=== PATIENT | male | born 1960 | race Caucasian/White ===

== ENCOUNTER → 2017-10-04 14:43 | Outpatient (RCR) | payer SELFPAY ==
[2017-10-04 18:20] LABS: Basophils % 0.6 % (0.1-2.0); Eosinophils # 0.1 K/mm3 (0.0-0.4); Eosinophils % 0.9 % (0.1-12.0); Hematocrit 49.3 % (42.0-52.0); Hemoglobin 15.6 g/dL (14.1-18.0); Lymphocytes # 1.2 K/mm3 (0.7-4.5); Mean Corpuscular HGB Conc 31.7 g/dL (31.8-35.4); Mean Corpuscular Hemoglobin 31.5 pg (27.0-31.2); Mean Corpuscular Volume 99.2 fl (80-94); Mean Platelet Volume 8.6 fl (7.4-10.4); Monocytes # 0.4 K/mm3 (0.1-1.0); Monocytes % 6.5 % (1.7-9.3); Neutrophils # 4.9 K/mm3 (1.8-7.8); Platelet Count 179 K/mm3 (142-424); Red Blood Count 4.97 M/mm3 (4.60-6.20); White Blood Count 6.6 K/mm3 (4.8-10.8)
[2017-10-04 19:06] LABS: Alanine Aminotransferase 84 U/L (12-78); Albumin Level 3.7 gm/dL (3.4-5.0); Alkaline Phosphatase 94 U/L (46-116); Anion Gap 13.7 mEq/L (5-15); Aspartate Amino Transferase 214 U/L (15-37); Bilirubin,Total 0.7 mg/dL (0.2-1.0); Blood Urea Nitrogen 6 mg/dL (7-18); Calcium 9.3 mg/dL (8.5-10.1); Carbon Dioxide 33 mmol/L (21.0-32.0); Chloride 93 mmol/L (98-107); Chol/HDL Ratio 1.5 (1-3.5); Cholesterol 156 mg/dL (140-200); Creatinine,Serum 0.58 mg/dL (0.70-1.30); Estimated Glomerular Filt Rate 145 ml/min (>60); Free T4 (Free Thyroxine) 0.98 ng/dl (0.76-1.46); GFR (African American) 176 ML/MIN (>60); Globulin 3.7 gm/dl (1.3-3.2); Glucose 109 mg/dL (74-106); HDL Cholesterol 103 mg/dL (27-67); LDL Cholesterol 43 mg/dL (0-130); Potassium 4.7 mmoL/L (3.5-5.1); Sodium 135 mmol/L (136-145); Thyroid Stimulating Hormone 1.46 uIU/ml (0.358-3.740); Total Protein,Serum 7.4 gm/dL (6.4-8.2); Triglycerides 51 mg/dL (30-200); VLDL Cholesterol 10 mg/dL (0-40)
[2017-10-04 20:56] LABS: Erythrocyte Sedimentation Rate 12 mm/hr (0-20)
[2017-10-08 06:16] LABS: Hep A Ab, IgM Negative (Negative); Hepatitis B Core Antibody IgM Negative (Negative); Hepatitis B Surface Antigen Negative (Negative)
[2017-10-08 13:38] LABS: Hepatitis C Antibody <0.1 s/co ratio (0.0-0.9)
== END ==
LOC: LAB 14:43
PROVIDERS: Physician Assistant; Visit Provider Emergency Medicine
DX: R09.89 Other specified symptoms and signs involving the circulatory and respiratory systems (principal)
CPT/HCPCS: 80053; 80061; 80074; 84439; 84443; 85025; 85651

== ENCOUNTER → 2017-10-15 09:22 | Outpatient (CLI) | payer SELFPAY ==
--- NOTE | 2017-10-15 09:26 | XR_ITS ---
XR hip LT 2-3V w/pelvis HISTORY: ITS.REASON: Hip Pain ORDERING PHYSICIAN: Rogelio Barron MD PATIENT AGE: 56 years COMPARISON: None FINDINGS: No fracture or dislocation is evident. No significant degenerative change. No lytic or blastic change. Unremarkable soft tissues. There are small subchondral cysts in each femoral head. There is prominent arteriosclerotic calcification of the lower abdominal aorta and proximal iliac arteries. IMPRESSION: Pelvis and bilateral hips negative for fracture and there is no significant degenerative change in either hip.
== END ==
PROVIDERS: PCP Emergency Medicine; Visit Provider Emergency Medicine
DX: M25.552 Pain in left hip (principal)
CPT/HCPCS: 73502

== ENCOUNTER → 2017-12-31 07:48 | Outpatient (CLI) | payer MEDICARE, SELFPAY ==
--- NOTE | 2017-12-31 07:50 | US_ITS ---
US abd. aorta screening HISTORY: ITS.REASON: Abdl pain, h/o aortic blockage ORDERING PHYSICIAN: SOHAM Avilez PATIENT AGE: 57 years Comparison: None FINDINGS: The study is very limited due to overlying bowel gas and due to overlying scarring. The aorta is patent at the level of the xiphoid measuring 2.5 x 1.9 cm. The aorta becomes dilated to 7 m below the xiphoid measuring 3.5 x 2.7 cm. At the level of the umbilicus the aorta measures 4 cm AP. Cannot confirm flow through the aorta on the sagittal images. Recommend CT angiogram of the aorta for more thorough evaluation. Proximal common iliacs are patent and nondilated. IMPRESSION: Dilated mid abdominal aorta at 4 cm. Cannot confirm flow within the aorta at this area as the images are very limited due to limited acoustical window. Suggest CT angiogram of the aorta for further evaluation
--- NOTE | 2017-12-31 07:50 | XR_ITS ---
XR chest 2V HISTORY: Smoker, COPD ITS.REASON: COPD ORDERING PHYSICIAN: SOHAM Avilez PATIENT AGE: 57 years COMPARISON: None FINDINGS: Unremarkable cardiovascular structures. There is hyperinflation with attenuation of the peripheral pulmonary vessels consistent with COPD no lobar consolidation or collapse. Lungs are clear. No acute bony anomalies. There is an old fracture of the left seventh rib IMPRESSION: COPD, no acute finding
== END ==
PROVIDERS: Family Provider Internal Medicine Adolescent Medicine; PCP Emergency Medicine; Visit Provider Physician Assistant
DX: Z98.890 Other specified postprocedural states; J44.9 Chronic obstructive pulmonary disease, unspecified
CPT/HCPCS: 71046; 76705

== ENCOUNTER → 2018-01-13 06:50 | Outpatient (CLI) | payer MEDICARE, SELFPAY ==
--- NOTE | 2018-01-13 06:51 | NM_ITS ---
History and Indications: Hypertension, tobacco use, shortness of breath Procedure: Patient received a 0.4 mg of Lexiscan, resting heart rate was 86 bpm resting blood pressure 196/110, with Lexiscan maximum heart rate achieved was 120 beats prominent which is less than 85% of the maximum predicted heart rate and a blood pressure was 149/88. With Lexiscan patient, shortness of breath. Electrocardiogram: Resting electrocardiogram showed sinus rhythm, with Lexiscan there is less than 1.[address] segment depression noted from the baseline EKG. The EKG portion of the Lexiscan Myoview is nondiagnostic. Cardiac stress and resting SPECT images: Cardiac stress and resting SPECT images were obtained using technetium 99 Myoview 32.3 mCi at stress and 10.6 mCi at rest, gated SPECT further analysis of segmental wall motion and admission of the ejection fraction also done. Cardiac stress and the suspect images show uniform myocardial activity without segmental perfusion abnormality, either derived ejection fraction is 62% with no regional wall motion abnormality, right ventricle is normal size and contractility. Conclusion: 1. The EKG portion of the Lexiscan Myoview is nondiagnostic. 2. No obvious scintigraphic evidence of reversible ischemia seen, computer derived ejection fraction is 62% with no regional wall motion abnormality, right ventricle is normal size and contractility. 3. Normal Lexiscan Myoview study.
--- NOTE | 2018-01-13 06:51 | CT_ITS ---
CT angio abdomen CLINICAL INDICATION: Abdominal pain, history of abdominal aortic aneurysm. Follow-up abnormal ultrasound of 12/31/2017. ITS.REASON: x ORDERING PHYSICIAN: Stepan Menendez MD PATIENT AGE: 57 years COMPARISON: None TECHNIQUE: Axial images obtained with sagittal and coronal reformats. All CT scans at the facility use one or more dose reduction, viz: automated exposure control, ma/kV adjustment per patient size (including targeted exams where dose is matched to indication, i.e. head), or iterative reconstruction technique. PROCEDURE: Oral Contrast: None IV Contrast: 100 mL's of Isovue-370 followed x 40 mL saline bolus.. FINDINGS: There are no previous exams available for comparison. CT angiogram: There has been a prior aortobifem graft placed. The graft begins approximately 2 cm below the level of the superior mesenteric artery and 1.3 cm below the level of the renal arteries. The graft is widely patent. There is mild dilatation of the proximal aspect of the graft at approximately 2.6 cm. There original diameter of the graft however is not known as there are no old exams for comparison. There is no evidence of retroperitoneal hemorrhage. The superior mesenteric artery and celiac arteries are widely patent. No evidence of renal artery stenosis. Small amount calcific plaque is present at the ostium of both renal arteries. There is severe stenosis of the [place] aorta approximately 60%. The iliac limbs of the graft are widely patent. There is suspected occlusion of the [place] iliac arteries proximally. Nonangiographic findings: Lung bases are clear. The liver, spleen, adrenal glands and pancreas and gallbladder have an unremarkable appearance. There is some mild cortical thinning of the kidneys. No evidence for intracranial hemorrhage or retroperitoneal mass. There is mild thickening of the urinary bladder nonspecific. There is grade 2 spondylolytic spondylolisthesis of L5 on S1. IMPRESSION: 1. Patent aortobifem graft. There is mild dilatation of the proximal aspect of the graft a partial clinical significance. No evidence of retrograde no hemorrhage or graft leak. 2. Other incidental nonacute findings as described above
--- NOTE | 2018-01-13 06:51 | CA_ITS ---
PROCEDURE: 2-D M-mode and color Doppler study INDICATIONS FOR THE TEST: Chest pain COPDx Heart Murmur Tobacco Smoking Palpitations Fatiguex Syncope Edema Hypertension Diabetes Mellitus Rheumatic Fever SOBxDOE Obesity Hyperlipidemia Family History HD Additional History AAA PATIENT INFORMATION HEIGHT: 5'7'' WEIGHT:114 GENDER: Male B/P: 204/127 2-D/M-MODE INTERPRETATION: 2-D MEASUREMENTS OBSERVED VALUES IN CMS Right Ventricular Dimension (RVDd) Interventricular Septum (Thickness)(IVsd) 0.9 Left Ventricular Internal Dimensions(LVIDd) 3.4 Left Ventricular Posterior Wall (Thickness)(LVPWd) 0.9 Aortic Root 2.9 Aortic Cusp Separation Left Atrial Dimensions (LAD) 2D 1. Left atrium is mildly enlarged, left ventricle is normal size, mild concentric left ventricular hypertrophy, visually estimated ejection fraction 55-60% with no regional wall motion abnormality. 2. The right atrium and right ventricle, a normal size and contractility. 3. The aortic valve is minimally thickened and fibrosed. 4. There is mild systolic anterior motion of the mitral valve leaflets seen, there is no mitral stenosis. 5. The tricuspid valve is grossly normal. 6. The pulmonic valve is poorly visualized. 7. No significant pericardial effusion noted. DOPPLER INTERROGATION: Doppler interrogation of the aortic, mitral and tricuspid valvular presence of mild mitral and tricuspid regurgitation, tricuspid regurgitation jet velocity is insufficient for calculation of the right ventricular systolic pressure, grade 1 diastolic dysfunction seen without tissue Doppler evidence of raised left atrial pressure. CONCLUSION: 1. The left atrium, normal left ventricular size, mild concentric left ventricular hypertrophy, visually estimated ejection fraction 55-60% with no obvious regional wall motion abnormality, grade 1 diastolic dysfunction seen without tissue Doppler evidence of raised left atrial pressure. 2. Mild systolic atrium motion of the mitral valve leaflets seen, there is no dynamic or fixed obstruction seen in the left ventricle outflow tract. 3. Mild mitral and tricuspid regurgitation 4. No significant pericardial effusion noted.
[2018-01-13 10:33] LABS: Blood Urea Nitrogen 3 mg/dL (7-18); Creatinine,Serum 0.67 mg/dL (0.70-1.30); Estimated Glomerular Filt Rate 123 ml/min (>60); GFR (African American) 148 ML/MIN (>60)
== END ==
PROVIDERS: Family Provider Internal Medicine Adolescent Medicine; PCP Emergency Medicine; Visit Provider Internal Medicine
DX: R06.02 Shortness of breath (principal); I71.4 Abdominal aortic aneurysm, without rupture; R53.83 Other fatigue; Z98.890 Other specified postprocedural states; R10.9 Unspecified abdominal pain; R09.89 Other specified symptoms and signs involving the circulatory and respiratory systems
CPT/HCPCS: 74175; 78452; 82565; 84520; 93017; 93306; A9502; J2785; Q9967

== ENCOUNTER 2018-01-19 12:50 | Observation (INO) ==
--- NOTE | 2018-01-19 13:27 | Emergency Department Note ---
ED Disposition Clinical Impression: Hyponatremia, COPD (chronic obstructive pulmonary disease), Bronchitis Disposition: Still a Patient Condition on Discharge: Good Referrals: Rogelio Barron MD [Primary Care Provider] - - Critical Care Critical Care Time: No Attestation: On 01/19/18, the high probability of a clinically significant, sudden or life threatening deterioration of the following system(s) required my full and direct attention, intervention and personal management. The time I documented below is in addition to time spent performing reported procedures but includes the following listed in this critical care notation. Medical Decision Making - Medical Records MR Comment: 234pm some labs still pending, pt family updated. [address] Carpenter he accepts for Beatrice Lambert Inquiry Pt receiving controlled substance: No Vital Signs: 01/19/18 12:58 01/19/18 13:36 Temperature 98.7 F Temperature Source Oral Pulse Rate 99 H Pulse Rate [Left Brachial] 65 Respiratory Rate 20 Blood Pressure [Left Arm] 103/70 Blood Pressure Mean [Left Arm] 81 Blood Pressure Source [Left Arm] Automatic Cuff Blood Pressure Position [Left Arm] Sitting 02 Sat by Pulse Oximetry 85 L Oxygen Delivery Method Room Air - Lab Data Lab Results 01/19/18 14:10: Influenza Type A Ag Negative, Influenza Type B Ag Negative 01/19/18 14:15: WBC 6.5, RBC 4.97, Hgb 16.0, Hct 47.8, MCV 96.2 H, MCH 32.3 H, MCHC 33.5, RDW 13.2, Plt Count 159, MPV 8.1, Neut % (Auto) 82.1 H, Lymph % (Auto) 10.8, [place] % (Auto) 5.8, Eos % (Auto) 0.9, Baso % (Auto) 0.4, Neut # (Auto) 5.3, Lymph # (Auto) 0.7, [place] # (Auto) 0.4, Eos # (Auto) 0.1, Baso # (Auto) 0.0 01/19/18 14:15: PT 9.8, INR 0.95, APTT 01/19/18 14:15: Sodium 127 L, Potassium 3.7, Chloride 89 L, Carbon Dioxide 26, Anion Gap 15.7 H, BUN 8, Creatinine 0.74, Estimated Creat Clear 85, Estimated GFR 109, Est GFR ( Amer) 132, Glucose 148 H, Calcium 8.8, Total Bilirubin 0.5, AST 49 H, ALT 29, Alkaline Phosphatase 71, Troponin I < 0.02, Total Protein 7.7, Albumin 3.5, Globulin 4.2 H, Albumin/Globulin Ratio 0.8 L, Lipase 156 Result diagrams: 01/19/18 14:15 01/19/18 14:15 Orders (Tests/Meds): ED MEDICATIONS Generic Name Dose Route Start Last Admin Trade Name Freq PRN Reason Stop Dose Admin Benzonatate 100 mg 01/19/18 14:45 Tessalon Perles 100mg Capsule PO 02/18/18 14:44 ONCE DELMIS Discontinued Medications Generic Name Dose Route Start Last Admin Trade Name Freq PRN Reason Stop Dose Admin Albuterol/Ipratropium 3 ml 01/19/18 13:24 01/19/18 13:35 Duoneb 3ml [facility] 01/19/18 13:25 3 ml ONCE ONE Administration Albuterol/Ipratropium 3 ml 01/19/18 14:33 Duoneb 3ml [facility] 01/19/18 14:34 ONCE ONE Methylprednisolone Sodium Succinate 125 mg 01/19/18 14:33 Solu-Medrol 125mg/2ml Vial IV 01/19/18 14:34 ONCE ONE - ECG Data Tracing #1 ER EKG read by myself shows sinus tachycardia rhythm rate of 108, normal axis, no QT prolongation, nonspecific EKG General Adult HPI - General Chief complaint: Upper Respiratory Infection Stated complaint: body aches soa Time Seen by Provider: 01/19/18 13:25 Mode of Arrival: Ambulatory Limitations: No Limitations Description of Symptoms (Recalled from ER Triage Doc. by RN): cough with clear sputum x2 days, body aches, chills reported, denies fever - History of Present Illness HPI narrative: Recent complains of cough dry and hacking and sometimes with some green phlegm and shortness of breath malaise and fatigue and whole body ache and chest congestion. States she was recently seen by Dr. Menendez with test done. He is CT angiogram on 920 that showed patent aortobifem graft mild dilatation of the proximal aspect of the graft a partial clinical significance no evidence of retrograde no hemorrhage no graft leak he had a Myoview report which the EKG portion was nondiagnostic headache and had a normal Lexiscan Myoview study ejection fraction 62%. - Related Data Home Medications Medication Instructions Recorded Confirmed albuterol sulfate HFA 90 2 puff INHALATION Q6H PRN 10/04/17 mcg/actuation aerosol inhaler Previous Rx's Medication Instructions Recorded bisoprolol fumarate 5 mg tablet 5 mg PO QDAY #30 tab 01/13/18 Allergies Allergy/AdvReac Type Severity Reaction Status Date / Time PCN (PENICILLIN) Allergy Unknown Uncoded 01/13/18 13:26 [facility] History I have reviewed the patient's past medical history: Yes Medical History: Reports:: Chronic Obstructive Pulmonary Disease (COPD), Coronary Artery Disease, Lung Disease Other Surgeries: Yes: Hernia Repair Amputation: No Fractures: Yes Comment: neck surgery,aortic valve replaced - Social History Educational Level: Completed GED/General Educational Development Smoking Status: Current every day smoker Tobacco Type: cigarettes # Packs/Day (cigarettes): 1 Alcohol Intake: never Alcohol Intake Frequency:: a few times a week Substance Use Type: marijuana - Psychiatric History Expresses thoughts of harming self/others: None Suicide Plan Description: No Plan Family Hx:: Cancer ROS Obtained: Yes All systems reviewed & no additional complaints Physical Exam General Appearance: Nontoxic coughing Head: Normocephalic, without obvious abnormality, atraumatic. Eyes: conjunctiva/corneas clear ENT: Mucous membranes moist. Neck: No jugular venous distention. Cardiac: regular rate and rhythm Lungs: Rhonchi to auscultation bilaterally Abdomen: Nontender, Nondistended, positive bowel sounds, no rebound, no pulsatile mass : No CVA tenderness Extremities: no edema Musculoskeletal: No chest wall tenderness Skin: No rashes or lesions to exposed skin. Neurologic: Alert. No gross focal deficits Psychiatric: Normal affect - General General appearance: alert - Respiratory Respiratory exam: Absent: accessory muscle use - Cardiovascular Cardiovascular exam: Present: regular rate - Neurological Exam Neurological exam: Present: alert
[2018-01-19 14:27] LABS: Basophils % 0.4 % (0.1-2.0); Eosinophils # 0.1 K/mm3 (0.0-0.4); Eosinophils % 0.9 % (0.1-12.0); Hematocrit 47.8 % (42.0-52.0); Lymphocytes # 0.7 K/mm3 (0.7-4.5); Lymphocytes % 10.8 K/mm3 (10-50); Mean Corpuscular HGB Conc 33.5 g/dL (31.8-35.4); Mean Corpuscular Hemoglobin 32.3 pg (27.0-31.2); Mean Corpuscular Volume 96.2 fl (80-94); Mean Platelet Volume 8.1 fl (7.4-10.4); Monocytes # 0.4 K/mm3 (0.1-1.0); Monocytes % 5.8 % (1.7-9.3); Neutrophils # 5.3 K/mm3 (1.8-7.8); Neutrophils % 82.1 % (37.0-80.0); Platelet Count 159 K/mm3 (142-424); Red Blood Count 4.97 M/mm3 (4.60-6.20); Red Cell Distribution Width 13.2 % (11.5-17.5); White Blood Count 6.5 K/mm3 (4.8-10.8)
[2018-01-19 14:48] LABS: Alanine Aminotransferase 29 U/L (12-78); Albumin Level 3.5 gm/dL (3.4-5.0); Albumin/Globulin Ratio 0.8 (1.1-1.8); Alkaline Phosphatase 71 U/L (46-116); Anion Gap 15.7 mEq/L (5-15); Aspartate Amino Transferase 49 U/L (15-37); Bilirubin,Total 0.5 mg/dL (0.2-1.0); Blood Urea Nitrogen 8 mg/dL (7-18); Calcium 8.8 mg/dL (8.5-10.1); Carbon Dioxide 26 mmol/L (21.0-32.0); Chloride 89 mmol/L (98-107); Globulin 4.2 gm/dl (1.3-3.2); Glucose 148 mg/dL (74-106); Lipase 156 u/L (73-393); Potassium 3.7 mmoL/L (3.5-5.1); Sodium 127 mmol/L (136-145); Total Protein,Serum 7.7 gm/dL (6.4-8.2)
[2018-01-19 15:01] LABS: INR 0.95 (0.9-1.1); Prothrombin Time 9.8 seconds (9.4-11.8)
[2018-01-20 05:31] LABS: Basophils % 0.2 % (0.1-2.0); Eosinophils % 0.2 % (0.1-12.0); Hematocrit 40.6 % (42.0-52.0); Lymphocytes % 18.8 K/mm3 (10-50); Mean Corpuscular HGB Conc 34.2 g/dL (31.8-35.4); Mean Corpuscular Hemoglobin 32.8 pg (27.0-31.2); Mean Corpuscular Volume 96.1 fl (80-94); Mean Platelet Volume 8.3 fl (7.4-10.4); Monocytes # 0.5 K/mm3 (0.1-1.0); Monocytes % 8.9 % (1.7-9.3); Neutrophils # 3.8 K/mm3 (1.8-7.8); Neutrophils % 71.9 % (37.0-80.0); Platelet Count 144 K/mm3 (142-424); Red Blood Count 4.23 M/mm3 (4.60-6.20); Red Cell Distribution Width 13.3 % (11.5-17.5); White Blood Count 5.3 K/mm3 (4.8-10.8)
[2018-01-20 05:42] LABS: Albumin Level 2.8 gm/dL (3.4-5.0); Albumin/Globulin Ratio 0.8 (1.1-1.8); Bilirubin,Total 0.5 mg/dL (0.2-1.0); Calcium 8.2 mg/dL (8.5-10.1); Globulin 3.6 gm/dl (1.3-3.2); Total Protein,Serum 6.4 gm/dL (6.4-8.2)
[2018-01-20 05:53] LABS: Hemoglobin 13.9 g/dL (14.1-18.0)
--- NOTE | 2018-01-20 08:07 | Pharmacy Consult Notes ---
[facility] Pharmacy VTE Monitoring - Patient Demographics Admission date: 01/20/18 Report Date: 01/20/18 Time: 08:07 Allergies/Adverse Reactions: Patient Allergies Penicillins Allergy (Verified 01/19/18 15:39) Unknown allergy reaction Height: 1.7 m Weight: 49.215 kg Patient Problems: Current Active Problems Hyponatremia (Acute) Bronchitis (Acute) COPD (chronic obstructive pulmonary disease) (Chronic) - VTE Risk Labs: VTE Related Lab Results Hgb 13.9 g/dL (14.1-18.0) L D 01/20/18 04:17 Hct 40.6 % (42.0-52.0) L 01/20/18 04:17 Plt Count 144 K/mm3 (142-424) 01/20/18 04:17 PT 9.8 seconds (9.4-11.8) 01/19/18 14:15 INR 0.95 (0.9-1.1) 01/19/18 14:15 APTT seconds (23.6-34.0) 01/19/18 14:15 BUN 6 mg/dL (7-18) L 01/20/18 04:17 Creatinine 0.58 mg/dL (0.70-1.30) L D 01/20/18 04:17 Estimated Creat Clear 99 mL/min (0-300) 01/20/18 04:17 Was VTE Risk Assessment Performed: Yes VTE Score: 2 VTE Risk Level: Low Risk Clinical Trial Participant: No - Prophylaxis Types of VTE Prophylaxis: IPCS Thigh High Location of Applied Device: Bilateral Lower Extremeties
[2018-01-20 09:56] LABS: Anion Gap 11.3 mEq/L (5-15); Potassium 3.3 mmoL/L (3.5-5.1)
--- NOTE | 2018-01-20 16:41 | History & Physical Report ---
*Admission Date: 01/20/18 *Chief complaint: sob *History of present illness: 57 yr old male presents to ed with complains of cough dry and hacking and sometimes with some green phlegm and shortness of breath malaise and fatigue and whole body ache and chest congestion. States he has been recently seen by Dr. Menendez with test done. Pt admitted with hyponatermia and ct chest ordered.pt is needing 02 due to sob. [facility] History I have reviewed the patient's past medical history: Yes Medical History: Reports:: Chronic Obstructive Pulmonary Disease (COPD), Coronary Artery Disease, Lung Disease Denies:: Cancer, Diabetes Mellitus Type 1, Diabetes Mellitus Type 2, MRSA Other Surgeries: Yes: Hernia Repair Amputation: No Fractures: Yes - *Social History Educational Level: Completed GED/General Educational Development Smoking Status: Current every day smoker Tobacco Type: cigarettes # Packs/Day (cigarettes): 1 Alcohol Intake: current Alcohol Intake Frequency:: holidays/special occasions only Substance Use Type: marijuana Occupational Status: disabled Housing: apartment Household Members: family - Psychiatric History Expresses thoughts of harming self/others: None Suicide Plan Description: No Plan *Family Hx:: Cancer Review of Systems - Review of Systems Review of systems:: pertinent systems reviewed and negative unless documented below - Constitutional Reports malaise, Denies fever(s) - Eyes Denies change in vision - ENT Denies change in voice - *Cardiovascular Reports shortness of breath, Denies chest pain with activity - *Respiratory Reports change in phlegm color, Reports cough, Reports shortness of breath, Reports shortness of breath with activity - *Gastrointestinal Denies loose stools - *Genitourinary Denies painful urination - *Musculoskeletal Denies decreased muscle mass - Integumentary/Breasts Denies change in hair - *Neurologic Reports weakness - Psychiatric Denies anxiety - Endocrine Denies flushing - Hematologic/Lymphatic Denies enlarged lymph nodes - Allergic/Immunologic Denies lip swelling Meds Home Medications Medication Instructions Recorded Confirmed Type albuterol sulfate HFA 90 2 puff INHALATION Q6H PRN 10/04/17 01/19/18 History mcg/actuation aerosol inhaler Bisoprolol Fumarate [Bisoprolol 5 mg PO DAILY 01/19/18 01/20/18 History 5mg Tablet] Allergies Allergy/AdvReac Type Severity Reaction Status Date / Time Penicillins Allergy Unknown Verified 01/19/18 15:39 allergy reaction Exam Vital signs and Labs for Last 24 Hours: Temp Pulse Resp BP Pulse Ox 98.4 F 70 18 112/64 96 01/20/18 16:00 01/20/18 16:00 01/20/18 16:00 01/20/18 16:00 01/20/18 16:00 Laboratory Results - last 24 hr 01/19/18 18:37: Troponin I < 0.02 01/20/18 00:30: Troponin I < 0.02 01/20/18 04:17: WBC 5.3, RBC 4.23 L, Hgb 13.9 L D, Hct 40.6 L, MCV 96.1 H, MCH 32.8 H, MCHC 34.2, RDW 13.3, Plt Count 144, MPV 8.3, Neut % (Auto) 71.9, Lymph % (Auto) 18.8, [place] % (Auto) 8.9, Eos % (Auto) 0.2, Baso % (Auto) 0.2, Neut # (Auto) 3.8, Lymph # (Auto) 1.0, [place] # (Auto) 0.5, Eos # (Auto) 0.0, Baso # (Auto) 0.0 01/20/18 04:17: Sodium 127 L, Potassium 3.0 L, Chloride 91 L, Carbon Dioxide 27, Anion Gap 12.0, BUN 6 L, Creatinine 0.58 L D, Estimated Creat Clear 99, Estimated GFR 145, Est GFR ( Amer) 175 D, Glucose 95 D, Calcium 8.2 L, Total Bilirubin 0.5, AST 33 D, ALT 21 D, Alkaline Phosphatase 52, Total Protein 6.4, Albumin 2.8 L D, Globulin 3.6 H, Albumin/Globulin Ratio 0.8 L 01/20/18 09:42: Sodium 127 L, Potassium 3.3 L, Chloride 93 L, Carbon Dioxide 26, Anion Gap 11.3, BUN 5 L, Creatinine 0.52 L, Estimated Creat Clear 110, Estimated GFR 164, Est GFR ( Amer) 199, Glucose 105, Calcium 8.0 L I & O for Last 24 hours: Intake & Output 01/18/18 01/19/18 01/20/18 01/21/18 11:59 11:59 11:59 11:59 Intake Total 1480 / 1480 480 / 480 Output Total 900 / 900 250 / 250 Balance 580 / 580 230 / 230 Weight 108 lb 8 oz Microbiology Reports for the Last 24 Hours: Microbiology 01/20/18 09:35 Sputum - Expectorated Sputum Gram Stain - Final - *Routine HEENT Exam Head: Present: normocephalic Eye: Present: EOMI, PERRL ENT: Present: mucous membranes moist - *Routine Neck Exam Present: supple. Absent: lymphadenopathy - *Routine Respiratory Exam Present: wheezes, diminished air movement - *Routine Cardiovascular Exam Present: RRR - *Routine Abdominal Exam Present: soft, normoactive bowel sounds. Absent: tenderness - *Routine Extremities Exam Absent: cyanosis, clubbing, edema - *Routine Skin Exam Present: warm. Absent: rash - *Routine Neurological Exam Present: alert, oriented X3 Assessment and Plan - Assessment and plan all Dx Assessment and Plan for all problems:: rounded with besson, all orders cleared with besethan
--- NOTE | 2018-01-21 07:58 | Discharge Summary ---
General - General Admission date:: 01/19/18 Discharge date: 01/21/18 HPI HPI: 57 yr old male presents to ed with complains of cough dry and hacking and sometimes with some green phlegm and shortness of breath malaise and fatigue and whole body ache and chest congestion. States he has been recently seen by Dr. Menendez with test done. Pt admitted with hyponatermia and ct chest ordered.pt is needing 02 due to sob. Above note per LoriREHAN. Patient is a long history of emphysema but has fragmented medical care, has not been seeing any kind of provider over the past years. Apparently over the past couple of weeks he has been seen in the [facility] office and plans to establish care there. He has no history of pulmonary evaluation. Apparently he has rescue inhalers at home and Symbicort but is not taking these. Hospital Course Hospital Course: Patient was admitted, hyponatremia resolved fluid rate Patient was found to be mildly hypokalemic but this stable throughout his stage. He ate well and had no problems with other medications. Room air oxygen saturations remained acceptable in the 91-93 range over his hospital stay on room air. New for this morning he was improved, felt better. Chest CT scan and x-ray revealed patchy areas of bronchiectasis. Plan will be to discharge home today with antibiotic steroids, I emphasize need to take his Symbicort inhalers twice a and rescue inhaler as needed. We will prescribe duo nebs 3 times daily. Follow-up with [facility] clinic in the next week. I have taken the liberty of scheduling up met with Dr. Hager in pulmonary for his bronchiectasis. Objective Vital signs: Temp Pulse Resp BP Pulse Ox 98.5 F 77 16 124/82 91 L 01/21/18 04:30 01/21/18 04:30 01/21/18 04:30 01/21/18 04:30 01/21/18 04:30 Narrative: Patient is pleasant, awake, alert and oriented x3. ENT exam clear. No JVD.. Edentulous. Lungs have rhonchi and diffuse crackles in the bases but better air movement admission. He is oxygenating and ventilating fairly well. Heart rate regular. Abdomen soft and nontender. No extremity edema rubbing or cyanosis. Results Labs on day of discharge: Labs from last 24 hours 01/20/18 01/20/18 09:42 04:17 Sodium 127 L Potassium 3.3 L Chloride 93 L Carbon Dioxide 26 Anion Gap 11.3 BUN 5 L Creatinine 0.52 L Estimated Creat Clear 110 Estimated GFR 164 Est GFR ( Amer) 199 Glucose 105 95 D Calcium 8.0 L DS: Diagnosis - Discharge Diagnosis (1) Bronchiectasis Status: Chronic (2) Hyponatremia Status: Resolved (3) COPD (chronic obstructive pulmonary disease) Status: Chronic (4) Hypokalemia Status: Acute Discharge Plan - Patient Discharge Instructions ACTIVITY: Continue current activity DIET: continue same diet - Follow up Plan Follow up with: Vania De Paz PA [Physician Election Clerk] - 01/25/18 Modesto Hager MD [Consulting Physician] - 1 month Disposition: Home, Self-[facility] Medications: Home Medications Medication Instructions Recorded Confirmed Type Bisoprolol Fumarate [Bisoprolol 5 mg PO DAILY 01/19/18 01/20/18 History 5mg Tablet] Prescriptions/Medication Reconciliation: New Budesonide/Formoterol Fumarate [Symbicort 160-4.5 Mcg Inhaler] 10.2 gm IH BID 30 Days hfa.aer.ad levoFLOXacin [Levaquin 500mg tab] 500 mg PO DAILY #7 tab predniSONE [Deltasone 20mg tablet] 20 mg PO BID 7 Days #14 tab Ipratropium/Albuterol Sulfate [Duoneb 3mL neb] 3 ml IH TID #90 neb Continue Bisoprolol Fumarate [Bisoprolol 5mg Tablet] 5 mg PO DAILY Changed Albuterol Sulfate [Albuterol HFA Inhaler] 2 puff INHALATION Q6H PRN #2 hfa.aer.ad PRN Reason: Shortness Of Breath
== END 2018-01-21 09:34 | disposition home or self-care (01) ==
LOC: ER 12:50 → 2ND 15:29 → INTOOBSV 16:23 → 2ND 16:24
PROVIDERS: ADMIT Internal Medicine Adolescent Medicine; ATTEND Emergency Medicine